=== PATIENT | male | born 1960 | race Caucasian/White ===

== ENCOUNTER 2016-09-11 10:42 | Emergency (ER) | payer OTHER ==
[~2016-09-11] VITALS: Ht 170.2 cm; Wt 72.6 kg
[2016-09-11 11:00] VITALS: BP 98/69
--- NOTE | 2016-09-11 11:07 | NUR ---
Patient ambulated to bed 5 with family. RN evaluating patient at bedside.
--- NOTE | 2016-09-11 11:08 | NUR ---
56M BIB SELF C/O RT MIDDLE FINGER PAIN X LAST SATURDAY; PT C/O PRESSURE TO RT MIDDLE FINGER, NON-RADIATING, CONSTANT, 5/10; SWELLING NOTED TO SITE; RT RADIAL PULSE PALPABLE, RT CAP REFILL < 3 SECONDS, NO LOSS OF SENSATION NOTED TO RT FINGER AT THIS TIME; PT STATED CRUSHED FINGER W/ FOLDING CHAIR; A&OX4, BL LUNG SOUNDS CLEAR, RR EVEN/UNLABORED, SKIN IS WARM/DRY/INTACT AT THIS TIME; PT DENIES N/V/D AT THIS TIME; STEADY GAIT; PT RESTING IN BED W/ HOB ELEVATED AND IN LOWEST POSITION; POSITIONED FOR COMFORT; ER MD MADE AWARE OF STATUS. WILL CONTINUE TO MONITOR.
--- NOTE | 2016-09-11 11:09 | NUR ---
XRAY AT BEDSIDE.
[2016-09-11] MEDS ORDERED: GLYB1TAB PO (11:12)
[2016-09-11 12:29] VITALS: BP 126/85
== END 2016-09-11 12:29 | disposition home or self-care (01) ==
LOC: MED 10:42
DX: S63.612A Unspecified sprain of right middle finger, initial encounter (principal); E11.9 Type 2 diabetes mellitus without complications; W23.0XXA Caught, crushed, jammed, or pinched between moving objects, initial encounter; Y93.89 Activity, other specified; Y92.89 Other specified places as the place of occurrence of the external cause; Y99.8 Other external cause status
CPT/HCPCS: 29125; 73140; 82948; 99284; Q0092

== ENCOUNTER 2017-09-10 14:25 | Emergency (ER) | payer OTHER ==
[~2017-09-10] VITALS: Ht 167.6 cm; Wt 81.6 kg
[~2017-09-10 14:25] MED LIST: GLYB1TAB13 PO
[2017-09-10 14:30] VITALS: BP 157/79
--- NOTE | 2017-09-10 14:39 | NUR ---
PT AMBULATED TO BED 10
--- NOTE | 2017-09-10 14:46 | NUR ---
57/M BIB FAMILY C/O left REDNESS without pain. Pt states no loss or double/blurred vision. Pt was working when eye was noticed to be red by another coworker. No drainage present. Eyes PERRLA.DENIES TRUMA . Pt is hypertensive upon interview. HX DM & ASTHMA. AAOX4 WITH EVEN AND STEADY GAIT; LUNGS CLEAR BL. PATIENT STATES PAIN OF 0/10 AT THIS TIME.
--- NOTE | 2017-09-10 14:48 | NUR ---
Patient being evaluated by DR PADRON at bedside
[2017-09-10 15:00] VITALS: BP 138/73
--- NOTE | 2017-09-10 15:00 | NUR ---
Patient discharged with BP138/73; DENIES MONTG[place] OR DIZINESS AT THIS TIME. Written and verbal after care instructions given and explained. Patient verbalized understanding. Ambulatory with steady gait. All questions addressed prior to discharge. Advised to follow up with PMD.
== END 2017-09-10 15:00 | disposition home or self-care (01) ==
LOC: MED 14:25
DX: H11.32 Conjunctival hemorrhage, left eye (principal); E11.9 Type 2 diabetes mellitus without complications
CPT/HCPCS: 99283

== ENCOUNTER 2018-07-02 14:22 | Emergency (ER) | payer OTHER ==
[~2018-07-02] VITALS: Ht 177.8 cm; Wt 69.6 kg
[~2018-07-02 14:22] MED LIST changes: -GLYB1TAB13 PO; +[UNRECOGNIZED DRUG - CODE] PO
[2018-07-02 14:28] VITALS: BP 147/77
[2018-07-02 15:10] LABS: BASOPHILS % (AUTO) 0.6 % (0.0-2.0); EOSINOPHILS # (AUTO) 0.1 K/uL (0-0.4); EOSINOPHILS % (AUTO) 0.8 % (0.0-4.0); HEMATOCRIT 43.5 % (36-52); HEMOGLOBIN 14.6 g/dL (12.0-18.0); LYMPHOCYTES # (AUTO) 0.2 K/uL (2.0-11.5); LYMPHOCYTES % (AUTO) 2.4 % (20.5-51.1); MEAN CORPUSCULAR HEMOGLOBIN 29 pg (27-31); MEAN CORPUSCULAR HGB CONC 34 g/dL (33-37); MEAN CORPUSCULAR VOLUME 86.2 fL (80-94); MONOCYTES # (AUTO) 0.6 K/uL (0.8-1.0); NEUTROPHILS # (AUTO) 5.8 K/uL (1.8-7.7); NEUTROPHILS % (AUTO) 87.2 % (42.2-75.2); PLATELET COUNT (AUTO) 128 K/uL (140-450); RED BLOOD CELL COUNT(AUTO) 5.05 MIL/uL (4.20-6.10); WHITE BLOOD COUNT (AUTO) 6.7 K/uL (4.8-10.8)
[2018-07-02 15:20] LABS: ANION GAP 15.5 (8-16); CARBON DIOXIDE 27.6 mmol/L (21-32); CREATININE 0.9 mg/dL (0.7-1.3); POTASSIUM 4.1 mmol/L (3.5-5.1)
[2018-07-02 15:26] LABS: ALBUMIN 3.8 g/dL (3.4-5.0); TOTAL BILIRUBIN 1.4 mg/dL (0.0-1.0)
[2018-07-02 15:56] LABS: APPEARANCE,URINE CLEAR (CLEAR); BILIRUBIN,URINE NEGATIVE (NEGATIVE); BLOOD, URINE NEGATIVE (NEGATIVE); COLOR,URINE YELLOW (YELLOW); LEUKOCYTE ESTERASE ,URINE NEGATIVE (NEGATIVE); NITRITE, URINE NEGATIVE (NEGATIVE); UGLUCOSE 3+ (NEGATIVE)
[2018-07-02 16:10] LABS: WBC,URINE 0-5 (RARE) /HPF (0-5)
[2018-07-02 16:11] LABS: RBC,URINE NONE SEEN /HPF (0-5)
[2018-07-02] MEDS: NACL 0.9% 1,000 ML IV ONE (17:19)
[2018-07-02 18:09] VITALS: BP 125/70
== END 2018-07-02 18:09 | disposition home or self-care (01) ==
LOC: MED 14:22
DX: J18.9 Pneumonia, unspecified organism (principal); J45.909 Unspecified asthma, uncomplicated; E11.9 Type 2 diabetes mellitus without complications; Z79.84 Long term (current) use of oral hypoglycemic drugs
CPT/HCPCS: 36415; 71045; 80053; 81001; 82550; 83605; 83880; 84484; 85025; 87040; 87086; 93005; 99284; J7030; Q0092